=== PATIENT | male | born 1965 | race African-American/Black ===

== ENCOUNTER 2021-09-02 20:34 | Outpatient (CLI) | payer MEDICARE, MEDICAID | END 2021-09-02 20:35 | disposition critical access hospital (66) | LOC: EMS 20:34 | DX: R06.02 Shortness of breath (principal); R06.2 Wheezing | CPT/HCPCS: A0425; A0427 ==

== ENCOUNTER 2021-09-02 20:57 | Emergency (ER) | payer MEDICARE, MEDICAID ==
[2021-09-02] MEDS ORDERED: ALBUTEROL NEB 2.5 MG/3 ML INH STA ×2 (21:08→21:39)
[2021-09-02] MEDS ORDERED: IPRATROPIUM 0.2 MG/ML NEB INH STA (21:09)
[2021-09-02] MEDS ORDERED: predniSONE 20 MG TABLET PO STA (21:11)
--- NOTE | 2021-09-02 21:15 | ED Physician Documentation ---
History of Present Illness - Stated complaint Stated Complaint: COPD - Chief complaint Chief Complaint: Resp - Additonal information Additional information: 56-year-old male who has a history of asthma and COPD presents emergency department with 3 days of productive cough and worsening shortness of air. He has been using his albuterol at home without relief of symptoms. There have been no fevers. He is fully vaccinated for COVID-19. He is a former tobacco user but he quit approximately 30 years ago. Denies any history of coronary artery disease denies chest pain. No recent travel. Review of Systems Constitutional: denies: Fever, Chills Eyes: reports: Reviewed and negative Ears: reports: Reviewed and negative Nose: reports: Reviewed and negative Throat: reports: Reviewed and negative Cardiac: denies: Chest pain / pressure, Palpitations Respiratory: reports: Dyspnea, Cough, Wheezing. denies: Hemoptysis GI: reports: Reviewed and negative : reports: Reviewed and negative Skin: reports: Reviewed and negative Musculoskeletal: reports: Reviewed and negative PD PAST MEDICAL HISTORY - Present Medications Home Medications: Ambulatory Orders Medication Instructions Recorded Confirmed Albuterol Sulf [Ventolin Hfa 1 - 2 puffs INH Q4HR PRN #1 inhaler 09/02/21 Inhaler] Azithromycin [Zithromax] 0 mg PO DAILY #6 tablet 09/02/21 predniSONE [Deltasone] 40 mg PO DAILY 5 Days #10 tablet 09/02/21 - Allergies Allergies/Adverse Reactions: Allergies Allergy/AdvReac Type Severity Reaction Status Date / Time No Known Drug Allergies Allergy Verified 09/02/21 21:06 PD ED PE NORMAL - General General: Alert and oriented X 3, No acute distress - HEENT HEENT: PERRL - Neck Neck: No: No adenopathy - Cardiac Cardiac: RRR, No murmur, No gallop - Respiratory Respiratory: No respiratory distress. No: Clear bilaterally (Scattered bilateral expiratory wheeze. No respiratory distress. Able to take full deep breaths. Normal phonation) - Abdomen Abdomen: Normal bowel sounds, Soft, Non tender - Back Back: No CVA TTP - Derm Derm: Warm and dry - Extremities Extremities: No deformity - Neuro Neuro: Alert and oriented X 3, personnel scheduler 2-12 intact, No motor deficit Eye Opening: Spontaneous Motor: Obeys Commands Verbal: Oriented GCS Score: 15 Results - Vitals Vitals: Vital Signs - 24 hr 09/02/21 09/02/21 09/02/21 21:02 21:22 21:41 Temperature 36.7 C Heart Rate 86 86 82 Respiratory 23 18 18 Rate Blood Pressure 129/101 H O2 Saturation 92 Oxygen O2 Source Room air - Rads (name of study) CXR Radiology: EMP read contemporaneously (no acute cardiopulmonary process) PD MEDICAL DECISION MAKING - ED course Complexity details: reviewed results, re-evaluated patient, considered differential, d/w patient ED course: 56-year-old male who carries a history of COPD/asthma presents emergency department for evaluation of 2 days cough congestion and increased shortness of air. He has used his albuterol at home without resolution of symptoms. He did call 911 and on presentation for EMS he was found to have saturations of 92% this improved to 97% in route with albuterol. On presentation here to the ER his saturations are normal but he does have some diffuse expiratory wheeze. He is not labored. He was initially given albuterol and Atrovent with marked improvement of his symptoms. He still did have a minor wheeze and a second 5 mg albuterol treatment was rendered. Patient is at this time clinically stable with no respiratory distress or hypoxia. My interpretation of his chest x-ray is that there is no acute focal findings. Patient will be discharged with a prescription for prednisone as well as azithromycin. Refill of albuterol was also sent. Emergent return precautions were discussed for failure of symptoms to improve or suddenly wo rsen. Departure - Departure Disposition: 01 Home, Self Care Clinical Impression: COPD with exacerbation Condition: Stable Record reviewed to determine appropriate education?: Yes Instructions: ED COPD Flare Prescriptions: Albuterol Sulf [Ventolin Hfa Inhaler] 1 - 2 puffs INH Q4HR PRN #1 inhaler PRN Reason: Shortness Of Air/Wheezing predniSONE [Deltasone] 40 mg PO DAILY 5 Days #10 tablet Azithromycin [Zithromax] 0 mg PO DAILY #6 tablet Comments: Naseem ahmeed were seen in the emergency department today for cough and shortness of air. You do have a history of asthma/COPD. Here in the emergency department you were given 2 nebulizer treatments which seemed to have improved your symptoms markedly. We do have a COVID-19 test pending on you. You do need to remain in quarantine until the results are known. It may be 48 to 72 hours until they are available. I think you would benefit from taking some steroids for the next few days. Your first dose was given tonight in the ER. You would also benefit from a few days of antibiotics. A prescription for a refill of your albuterol, the antibiotics and steroids have been sent to the [facility] in [place]. If despite this treatment at home you are having increased shortness of air, develop any fevers, develop chest pain or feel that your symptoms are worsening then please return immediately to the ER for second evaluation. If you are going to remain on [facility] I would advise you to establish with a primary care doctor to have longer-term management of your COPD/asthma managed. You have a Covid test pending. You need to self quarantine until the result is done and negative. Do not leave your house. Do not get near anybody. The results should be done in 48 to 72 hours. We will call with a positive result, the fastest way to get a negative result for confirmation though is to go to the hospital website at [email or web address], click on the my [facility] tab and sign up for the patient portal. If any friends or family get sick and would like to have a Covid test done, but do not have signs or symptoms that would necessitate being hospitalized, there are multiple local options for Covid testing. [facility] keeps an updated list of testing and vaccination options at [email or web address]
[2021-09-02] MEDS ORDERED: ALBUTEROL NEB 2.5 MG/3 ML INH ONE (21:46)
--- NOTE | 2021-09-02 22:05 | XRAY Report ---
PROCEDURE: Chest 1 View X-Ray INDICATIONS: chest pain TECHNIQUE: One view of the chest was acquired. COMPARISON: None. FINDINGS: Surgical changes and devices: None. Lungs and pleura: No pleural effusions or pneumothorax. There is hyperinflation of the lungs with mi ld flattening of the hemidiaphragms suggestive of COPD. No focal consolidation. Mediastinum: Mediastinal contours appear normal. Heart size is normal. Bones and chest wall: No suspicious bony lesions. Overlying soft tissues appear unremarkable. IMPRESSION: 1. No definite acute cardiopulmonary disease. 2. Findings suggestive of COPD. Reviewed by: Dangelo Barclay MD on 09/02/2021 10:04 PM [facility] Approved by: Dangelo Barclay MD on 09/02/2021 10:04 PM [facility] Station ID: [id number]
[2021-09-02 22:06] VITALS: BP 141/88
== END 2021-09-02 22:21 | disposition home or self-care (01) ==
LOC: EDBD → ED 20:57
DX: J44.1 Chronic obstructive pulmonary disease with (acute) exacerbation (principal); Z20.822 Contact with and (suspected) exposure to COVID-19; Z87.891 Personal history of nicotine dependence
CPT/HCPCS: 71045; 94640; 94664; 99284; A9270; J7512; U0004

== ENCOUNTER 2021-09-08 05:08 | Outpatient (CLI) | payer MEDICARE, MEDICAID | END 2021-09-08 05:09 | disposition EMS.NT | LOC: EMS 05:08 | DX: R06.02 Shortness of breath (principal); F41.9 Anxiety disorder, unspecified ==